=== PATIENT | female | born 1995 | race Caucasian/White ===

== ENCOUNTER 2017-06-15 12:31 | Emergency (ER) | payer OTHER ==
[~2017-06-15] VITALS: Ht 160 cm; Wt 80.0 kg
[2017-06-15] MEDS ORDERED: IBUP-2028 PO (12:44)
[2017-06-15 16:15] VITALS: BP 115/68
[2017-06-15] MEDS: ACETAMINOPHEN 325MG TABLET PO ONE ×2 (16:25→16:49)
== END 2017-06-15 16:45 | disposition home or self-care (01) ==
LOC: ER 14:01
DX: H66.91 Otitis media, unspecified, right ear (principal)
CPT/HCPCS: 99283